=== PATIENT | female | born 1950 | race Caucasian/White ===

== ENCOUNTER 2018-12-04 12:53 | Outpatient (CLI) | payer MEDICARE ==
--- NOTE | 2018-12-04 14:26 | MMO ---
Bilateral MAMMO Bilat Screen [facility]. CLINICAL HISTORY: Patient is 67 years old and is seen for screening. The patient has no family history of breast cancer. The patient has no personal history of cancer. VIEWS: The views performed were: bilateral craniocaudal with tomosynthesis and bilateral mediolateral oblique with tomosynthesis. FILMS COMPARED: The present examination has been compared to prior imaging studies performed at [facility] on 04/03/2013 and 06/22/2016, and at [facility] on 03/25/2009. MAMMOGRAM FINDINGS: There are scattered fibroglandular densities. There are stable benign appearing calcifications seen in both breasts. There are no suspicious masses, suspicious calcifications, or new areas of architectural distortion. IMPRESSION: THERE IS NO MAMMOGRAPHIC EVIDENCE OF MALIGNANCY. A ROUTINE FOLLOW-UP MAMMOGRAM IN 1 YEAR IS RECOMMENDED. THE RESULTS OF THIS EXAM WERE SENT TO THE PATIENT. ACR BI-RADS Category 2 - Benign finding MAMMOGRAPHY NOTE: 1. A negative mammogram report should not delay a biopsy if a dominant of clinically suspicious mass is present. 2. Approximately 10% to 15% of breast cancers are not detected by mammography. 3. Adenosis and dense breasts may obscure an underlying neoplasm.
== END 2018-12-04 12:54 | disposition home or self-care (01) ==
LOC: BICMAMMO 12:53
PROVIDERS: ATTEND Family Medicine
DX: Z12.31 Encounter for screening mammogram for malignant neoplasm of breast (principal)
CPT/HCPCS: 77063; 77067

== ENCOUNTER 2019-03-06 13:49 | Outpatient (CLI) | payer MEDICARE ==
--- NOTE | 2019-03-06 14:56 | ULT ---
ULTRASOUND RETROPERITONEUM COMPLETE: (RENAL) DATE: 03/06/19 HISTORY: 68-year-old female with chronic kidney disease Stage III. FINDINGS: Visualization is limited because of body habitus. Right kidney is measured as 8.5 x 6 x 4.5 cm. Left kidney is measured as 8 x 5 x 4.5 cm. No hydronephrosis bilaterally. No large renal cyst or solid mass identified. Bladder volume 60 mL at time of scan. IMPRESSION: No hydronephrosis. ROXIE Mata POS: OFF
== END 2019-03-06 13:50 | disposition home or self-care (01) ==
LOC: BICULT 13:49
PROVIDERS: ATTEND Internal Medicine Nephrology
DX: N18.3 Chronic kidney disease, stage 3 (moderate) (principal)
CPT/HCPCS: 76770

== ENCOUNTER 2019-05-21 11:16 | Outpatient (CLI) | payer MEDICARE | END 2019-05-21 11:17 | disposition home or self-care (01) | LOC: LABBT 11:16 | PROVIDERS: ATTEND Internal Medicine Cardiovascular Disease | DX: Z01.810 Encounter for preprocedural cardiovascular examination (principal); R07.9 Chest pain, unspecified | CPT/HCPCS: 36415; 80053; 80061; 82607; 82746; 83036; 85025; 93005; 93010 ==

== ENCOUNTER 2019-05-23 12:02 | Outpatient (CLI) | payer MEDICARE ==
--- NOTE | 2019-05-23 14:49 | RAD ---
LUMBAR SPINE 4 VIEWS: Date: 05/23/19 HISTORY: Low back pain with radiculopathy. FINDINGS: Clips in right upper quadrant suggest prior cholecystectomy. There are postoperative clips in the lef t upper quadrant as well. Lumbar pedicles appear intact on frontal imaging. There is anterolisthesis of L4 on L5 measuring approximately 9.0 mm. There is bilateral facet hypertrophy at L3-4, L4-5, and L5-S1. IMPRESSION: Multilevel lower lumbar spine degenerative change, most prominent at L4-5 as detailed above. POS: TPC
== END 2019-05-23 12:03 | disposition home or self-care (01) ==
LOC: BICRAD 12:02
PROVIDERS: ATTEND Family Medicine
DX: M47.26 Other spondylosis with radiculopathy, lumbar region (principal); M47.27 Other spondylosis with radiculopathy, lumbosacral region
CPT/HCPCS: 72110

== ENCOUNTER 2019-05-31 06:03 | Day surgery (SDC) | payer MEDICARE ==
[2019-05-21 11:32] VITALS: BMI 44.8
[2019-05-31 07:05] LABS: PTT 26.1 SEC (22.9-36.1); Prothrombin Time 12.8 SEC (12.0-14.7)
[2019-05-31] MEDS ORDERED: Lidocaine 1% (PF) 30 ML VIAL ONE ×2 (07:42→08:28)
[2019-05-31 08:02] LABS: Anion Gap 15 mmol/L (10-20); BUN (Urea Nitrogen) 13 mg/dL (9.8-20.1); Calc. Creatinine Clearance 80 mL/min (70-130); Calcium 8.9 mg/dL (7.8-10.44); Carbon Dioxide 23 mmol/L (23-31); Chloride 105 mmol/L (98-107); Estimated GFR-MDRD 38; Glucose 161 mg/dL (80-115); Potassium 3.7 mmol/L (3.5-5.1); Sodium 139 mmol/L (136-145)
[2019-05-31] MEDS ORDERED: Midazolam HCl 2 mg/2 ml Vial ONE (08:46)
[2019-05-31] MEDS ORDERED: Fentanyl 100 MCG/2 ML VIAL ONE (08:47)
[2019-05-31] MEDS ORDERED: Iopamidol 370 76% 100 ML VIAL ONE (12:00)
== END 2019-05-31 12:10 | disposition home or self-care (01) ==
LOC: CCL 06:03
PROVIDERS: ATTEND Internal Medicine Cardiovascular Disease
PROC: 4A023N7 Measurement of Cardiac Sampling and Pressure, Left Heart, Percutaneous Approach (ICD-10-PCS; principal; 2019-05-31)
PROC: B201YZZ Plain Radiography of Multiple Coronary Arteries using Other Contrast (ICD-10-PCS; 2019-05-31)
PROC: B205YZZ Plain Radiography of Left Heart using Other Contrast (ICD-10-PCS; 2019-05-31)
DX: I25.10 Atherosclerotic heart disease of native coronary artery without angina pectoris (principal); I12.9 Hypertensive chronic kidney disease with stage 1 through stage 4 chronic kidney disease, or unspecified chronic kidney disease; E11.22 Type 2 diabetes mellitus with diabetic chronic kidney disease; N18.3 Chronic kidney disease, stage 3 (moderate); E66.9 Obesity, unspecified; F32.9 Major depressive disorder, single episode, unspecified; F17.200 Nicotine dependence, unspecified, uncomplicated; Z68.41 Body mass index [BMI] 40.0-44.9, adult; Z79.82 Long term (current) use of aspirin; Z79.899 Other long term (current) drug therapy; Z79.84 Long term (current) use of oral hypoglycemic drugs; I49.3 Ventricular premature depolarization
CPT/HCPCS: 36415; 80048; 85610; 85730; 93458; 99152; C1760; C1769; J1644; J2001; J2250; J3010; Q9967

== ENCOUNTER 2020-02-20 13:06 | Outpatient (CLI) | payer MEDICARE ==
--- NOTE | 2020-02-20 15:19 | MMO ---
Bilateral MAMMO Bilat Screen [facility]. CLINICAL HISTORY: Patient is 69 years old and is seen for screening. The patient has no family history of breast cancer. The patient has no personal history of cancer. VIEWS: The views performed were: bilateral craniocaudal with tomosynthesis and bilateral mediolateral oblique with tomosynthesis. FILMS COMPARED: The present examination has been compared to prior imaging studies performed at [facility] on 04/03/2013, 06/22/2016 and 12/04/2018, and at [facility] on 03/25/2009. This study has been interpreted with the assistance of computer-aided detection. MAMMOGRAM FINDINGS: There are scattered fibroglandular densities. Benign calcifications are noted bilaterally. There are no suspicious masses, suspicious calcifications, or new areas of architectural distortion. IMPRESSION: THERE IS NO MAMMOGRAPHIC EVIDENCE OF MALIGNANCY. A ROUTINE FOLLOW-UP MAMMOGRAM IN 1 YEAR IS RECOMMENDED. THE RESULTS OF THIS EXAM WERE SENT TO THE PATIENT. ACR BI-RADS Category 2 - Benign finding MAMMOGRAPHY NOTE: 1. A negative mammogram report should not delay a biopsy if a dominant of clinically suspicious mass is present. 2. Approximately 10% to 15% of breast cancers are not detected by mammography. 3. Adenosis and dense breasts may obscure an underlying neoplasm. Reported by: WHITNEY ORTEZ MD Electonically Signed: [id number]
== END 2020-02-20 13:07 | disposition home or self-care (01) ==
LOC: BICMAMMO 13:06
PROVIDERS: ATTEND Family Medicine
DX: Z12.31 Encounter for screening mammogram for malignant neoplasm of breast (principal)
CPT/HCPCS: 77063; 77067